=== PATIENT | male | born 2000 | race African-American/Black ===

== ENCOUNTER 2021-04-05 01:35 | Emergency (ER) | payer OTHER ==
[2021-04-05] MEDS ORDERED: SODIUM CHLORIDE 0.9% 1,000 ML IV STA (02:15)
--- NOTE | 2021-04-05 02:15 | ED ---
Recheck HPI - General Chief Complaint: Recheck/Abnormal Lab/Rx Stated Complaint: Shaking, body spasms Time Seen by Provider: 04/05/21 01:48 Source: patient, RN notes reviewed, old records reviewed Mode of arrival: ambulatory Limitations: no limitations - History of Present Illness Initial Comments: This is a 20-year-old male presents today for evaluation of shaking episode. Uncontrolled shaking unable to control his body about getting intermittently. Patient felt very cold denying episode with sudden onset. Patient has history of seizures with seizure for a few years. Patient takes no significant medications, has had no new drugs or alcohol, patient states he is currently back to baseline MD Complaint: other (Significant shaking) -: minutes(s) Returns Today for: other (Shaking event, was concern for prior seizure history) Symptoms Since Prior Visit: no new symptoms Associated Symptoms: chills Treatments Prior to Arrival: other medications (Patient currently off all seizure medications), other (none) - Related Data Allergies Allergy/AdvReac Type Severity Reaction Status Date / Time No Known Allergies Allergy Verified 04/05/21 01:42 Review of Systems ROS Statement: Those systems with pertinent positive or pertinent negative responses have been documented in the HPI. ROS Other: All systems not noted in ROS Statement are negative. Past Medical History Past Medical History: No Reported History History of Any Multi-Drug Resistant Organisms: None Reported Past Surgical History: No Surgical Hx Reported Past Psychological History: Anxiety Smoking Status: Current every day smoker Past Alcohol Use History: Occasional Past Drug Use History: Marijuana General Exam Limitations: no limitations General appearance: alert, in no apparent distress, anxious Head exam: Present: atraumatic, normocephalic, normal inspection Eye exam: Present: normal appearance, PERRL, EOMI. Absent: scleral icterus, conjunctival injection, periorbital swelling ENT exam: Present: normal exam, mucous membranes moist Neck exam: Present: normal inspection. Absent: tenderness, meningismus, lymphadenopathy Respiratory exam: Present: normal lung sounds bilaterally. Absent: respiratory distress, wheezes, rales, rhonchi, stridor Cardiovascular Exam: Present: regular rate, normal rhythm, normal heart sounds. Absent: systolic murmur, diastolic murmur, rubs, gallop, clicks GI/Abdominal exam: Present: soft, normal bowel sounds. Absent: distended, tenderness, guarding, rebound, rigid Extremities exam: Present: normal inspection, full ROM, normal capillary refill. Absent: tenderness, pedal edema, joint swelling, calf tenderness Back exam: Present: normal inspection Neurological exam: Present: alert, oriented X3, CN II-XII intact Psychiatric exam: Present: normal affect, normal mood Skin exam: Present: warm, dry, intact, normal color. Absent: rash Course Vital Signs 04/05/21 01:36 Temperature 99.1 F Pulse Rate 109 H Respiratory 24 Rate Blood Pressure 134/77 O2 Sat by Pulse 99 Oximetry - Reevaluation(s) Reevaluation #1: 04/05/21 02:53 Medical record is reviewed Reevaluation #2: 04/05/21 02:53 No recurrent events here in the ER Medical Decision Making - Medical Decision Making 20 Male to the ER for evaluation. Patient episodes of tremors with uncontrolled shakes prior to arrival. Labwork is normal here in the ER he feels well con tinues to feel well and can be discharged home - Lab Data Result diagrams: 04/05/21 02:25 04/05/21 02:25 Lab Results 04/05/21 04/05/21 Range/Units 02:25 02:25 WBC 4.1 (3.8-10.6) k/uL RBC 4.35 (4.30-5.90) m/uL Hgb 12.8 L (13.0-17.5) gm/dL Hct 38.7 L (39.0-53.0) % MCV 88.9 (80.0-100.0) fL MCH 29.5 (25.0-35.0) pg MCHC 33.1 (31.0-37.0) g/dL RDW 12.4 (11.5-15.5) % Plt Count 381 (150-450) k/uL MPV 6.6 Neutrophils % (Manual) 44 % Lymphocytes % (Manual) 38 % Monocytes % (Manual) 18 % Neutrophils # (Manual) 1.80 (1.3-7.7) k/uL Lymphocytes # (Manual) 1.56 (1.0-4.8) k/uL Monocytes # (Manual) 0.74 (0-1.0) k/uL Nucleated RBCs 0 (0-0) /100 WBC Manual Slide Review Performed RBC Morphology Normal Sodium 140 (137-145) mmol/L Potassium 4.2 (3.5-5.1) mmol/L Chloride 105 (98-107) mmol/L Carbon Dioxide 27 (22-30) mmol/L Anion Gap 8 mmol/L BUN 16 (9-20) mg/dL Creatinine 0.89 (0.66-1.25) mg/dL Est GFR (CKD-EPI)AfAm >90 (>60 ml/min/1.73 sqM) Est GFR (CKD-EPI)NonAf >90 (>60 ml/min/1.73 sqM) Glucose 106 H (74-99) mg/dL Calcium 9.4 (8.4-10.2) mg/dL Phosphorus 3.0 (2.5-4.5) mg/dL Magnesium 2.2 (1.6-2.3) mg/dL Total Bilirubin 0.3 (0.2-1.3) mg/dL AST 65 H (17-59) U/L ALT 60 H (4-49) U/L Alkaline Phosphatase 103 (38-126) U/L Creatine Kinase 94 (55-170) U/L Total Protein 7.0 (6.3-8.2) g/dL Albumin 3.9 (3.5-5.0) g/dL Disposition Clinical Impression: Tremor Disposition: HOME SELF-CARE Condition: Good Instructions (If sedation given, give patient instructions): Tremors (ED) Is patient prescribed a controlled substance at d/c from ED?: No Referrals: Reyes De Souza DO [Primary Care Provider] - 1-2 days
[2021-04-05 02:43] LABS: ALT 60 U/L (4-49); AST 65 U/L (17-59); African American GFR (CKD) >90 (>60 ml/min/1.73 sqM); Albumin 3.9 g/dL (3.5-5.0); Alkaline Phosphatase 103 U/L (38-126); Anion Gap 8 mmol/L; Blood Urea Nitrogen 16 mg/dL (9-20); Calcium 9.4 mg/dL (8.4-10.2); Carbon Dioxide 27 mmol/L (22-30); Chloride 105 mmol/L (98-107); Creatine Kinase 94 U/L (55-170); Glucose 106 mg/dL (74-99); Magnesium 2.2 mg/dL (1.6-2.3); Non-African American GFR(CKD) >90 (>60 ml/min/1.73 sqM); Potassium 4.2 mmol/L (3.5-5.1); Sodium 140 mmol/L (137-145); Total Bilirubin 0.3 mg/dL (0.2-1.3)
[2021-04-05 03:02] LABS: HCT 38.7 % (39.0-53.0); HGB 12.8 gm/dL (13.0-17.5); MCH 29.5 pg (25.0-35.0); MCHC 33.1 g/dL (31.0-37.0); MCV 88.9 fL (80.0-100.0); Mean Platelet Volume 6.6; Platelet Count 381 k/uL (150-450); RBC 4.35 m/uL (4.30-5.90); RDW 12.4 % (11.5-15.5); WBC 4.1 k/uL (3.8-10.6)
[2021-04-05 03:45] LABS: Lymphocytes # (M) 1.56 k/uL (1.0-4.8); Monocytes # (M) 0.74 k/uL (0-1.0); Neutrophils % (M) 44 %; Nucleated Red Blood Cells 0 /100 WBC (0-0); Total Cells Counted 100
[2021-04-05 04:28] VITALS: BP 114/89; PULSE 93; RESP 18; TEMP 97.8
== END 2021-04-05 04:28 | disposition home or self-care (01) ==
LOC: EC 01:35
DX: R25.1 Tremor, unspecified (principal); R25.2 Cramp and spasm; R68.83 Chills (without fever); F17.200 Nicotine dependence, unspecified, uncomplicated
CPT/HCPCS: 36415; 80053; 82550; 83735; 84100; 85025; 96360; 96361; 99283